=== PATIENT | female | born 1985 | race Asian ===

== ENCOUNTER 2019-03-31 19:01 | Emergency (ER) | payer BC ==
[~2019-03-31] VITALS: Ht 170.2 cm; Wt 86.2 kg
--- NOTE | 2019-03-31 19:10 | NUR ---
PT BIBHUSBAND C/O LOWER ABDOMINAL PAIN RADIATING TO BACK X2 DAYS. PT ALSO C/O SCANT VAGINAL BLEEDING. DENIES NAUSEA, VOMITTING, DIZZINESS. PT AAOX4. RESPIRATIONS EVEN AND UNLABORED. SKIN INTACT. APPEARS UNCOMFORTABLE. AT BEDSIDE. WILL CONTINUE TO MONITOR
--- NOTE | 2019-03-31 19:15 | NUR ---
URINE COLLECTED AND SENT TO LAB
--- NOTE | 2019-03-31 19:35 | NUR ---
SUPERVISOR HANGING AND TRIMMING AT BEDSIDE FOR BLOOD DRAW
[2019-03-31] MEDS ORDERED: ACETAMINOPHEN ES 500 MG TABLET ONE (19:38)
--- NOTE | 2019-03-31 19:40 | NUR ---
Note undone in EDM - 03/31/19 at 2000 by MANOJ PT MUSHTAQ C/O LOWER ABDOMINAL PAIN RADIATING TO BACK X2 DAYS. PT ALSO C/O SCANT VAGINAL BLEEDING. DENIES NAUSEA, VOMITTING, DIZZINESS. PT AAOX4. RESPIRATIONS EVEN AND UNLABORED. SKIN INTACT. APPEARS UNCOMFORTABLE. AT BEDSIDE. WILL CONTINUE TO MONITOR
[2019-03-31 19:46] LABS: APPEARANCE,URINE CLEAR (CLEAR); BILIRUBIN,URINE NEGATIVE (NEGATIVE); BLOOD, URINE 2+ Ery/uL (NEGATIVE); COLOR,URINE YELLOW (YELLOW); KETONES,URINE NEGATIVE (NEGATIVE); LEUKOCYTE ESTERASE ,URINE NEGATIVE (NEGATIVE); NITRITE, URINE NEGATIVE (NEGATIVE); PH,URINE 5.5 (5.0-8.0); PROTEIN,URINE NEGATIVE (NEGATIVE); UGLUCOSE NEGATIVE (NEGATIVE); UROBILINOGEN,URINE 0.2 EU/dL (0.2)
[2019-03-31 19:51] LABS: BASOPHILS % (AUTO) 0.3 % (0.0-2.0); HEMATOCRIT 35 % (33-45); HEMOGLOBIN 11.7 g/dL (11.5-14.8); LYMPHOCYTES # (AUTO) 2.9 /CMM (0.8-4.8); LYMPHOCYTES % (AUTO) 31.8 % (20.0-44.0); MEAN CORPUSCULAR HGB CONC 33 g/dl (31.0-36.0); MEAN CORPUSCULAR VOLUME 84 fL (82-100); MONOCYTES # (AUTO) 0.5 /CMM (0.1-1.30); MONOCYTES % (AUTO) 5.4 % (2.0-12.0); NEUTROPHILS # (AUTO) 5.5 /CMM (1.8-8.9); NEUTROPHILS % (AUTO) 59.5 % (43.0-81.0); PLATELET COUNT (AUTO) 337 /CMM (150-450); RED BLOOD CELL COUNT(AUTO) 4.17 MIL/uL (4.0-5.2); WHITE BLOOD COUNT (AUTO) 9.2 K/uL (4.3-11.0)
[2019-03-31 19:52] LABS: BACTERIA,URINE 4+ /HPF (None Seen)
[2019-03-31] MEDS ORDERED: ACETAMINOPHEN ES 500 MG TABLET PO ONE (20:00)
--- NOTE | 2019-03-31 20:04 | NUR ---
ULTRASOUND AT BEDSIDE
[2019-03-31 20:11] LABS: CALCIUM, SERUM 8.8 mg/dL (8.5-10.1); CREATININE 0.6 mg/dL (0.6-1.3); POTASSIUM 3.4 mmol/L (3.5-5.1)
--- NOTE | 2019-03-31 20:50 | NUR ---
CALLED CAROL TO HAVE IMAGE READ
[2019-03-31 21:36] VITALS: BP 131/74
--- NOTE | 2019-03-31 21:36 | NUR ---
Patient discharged to home in stable condition. Written and verbal after care instructions given. Patient verbalizes understanding of instruction. Pt ambulatory with a steady gait
== END 2019-03-31 21:37 | disposition home or self-care (01) ==
LOC: ER 19:03
DX: O20.9 Hemorrhage in early pregnancy, unspecified (principal); O23.31 Infections of other parts of urinary tract in pregnancy, first trimester; Z3A.12 12 weeks gestation of pregnancy; Z98.890 Other specified postprocedural states
CPT/HCPCS: 36415; 76805-TC; 80048-TC; 81000-TC; 84702-TC; 85025-TC; 85730-TC; 87086-TC

== ENCOUNTER 2023-08-24 21:17 | Emergency (ER) | payer BC ==
[~2023-08-24] VITALS: Ht 170.2 cm; Wt 70.3 kg
[2023-08-24 22:20] VITALS: BP 138/82; TEMP 98.6
[2023-08-24] MEDS ORDERED: IBUPROFEN 400 MG TABLET PO ONE (22:30)
[2023-08-24] MEDS ORDERED: IBUPROFEN 400 MG TABLET ONE (22:36)
[2023-08-24 23:12] VITALS: O2SAT 100
== END 2023-08-24 23:12 | disposition home or self-care (01) ==
LOC: ER 21:28
DX: S90.121A Contusion of right lesser toe(s) without damage to nail, initial encounter (principal); W22.8XXA Striking against or struck by other objects, initial encounter; Y93.42 Activity, yoga; Y92.89 Other specified places as the place of occurrence of the external cause; Y99.8 Other external cause status
CPT/HCPCS: 73660-TC